=== PATIENT | male | born 1930 | race Caucasian/White ===

== ENCOUNTER 2016-06-15 01:10 | Day surgery (SDC) | payer MEDICARE, OTHER ==
[~2016-06-15] VITALS: Ht 185.4 cm; Wt 95.2 kg
[~2016-06-15 01:10] MED LIST: ADV250INH IH; DABI75CA3 PO; LACT1CAP65 PO; LOSA25TA21 PO; MONT10TA20 PO; MULT-1018 PO; PRE10 PO; SOTA80TA PO; TRIA10.8 NS; UBID100C16 PO
[2016-06-15] MEDS ORDERED: Propofol 10,000 mCg/mL 20 mL Inj ONE (01:11)
[2016-06-15 07:38] VITALS: BP 121/80; PULSE 80; RESP 14; O2SAT 96
[2016-06-15 07:41] LABS: BASOPHILS % (AUTO) 0.5 % (0-3); MONOCYTES % (AUTO) 13.5 % (4-12); Mean Corpuscular Hemoglobin 33.3 pg (27.0-35.0); Mean Corpuscular Volume 98.7 fL (81-100); Platelet Count 221 bil/L (150-400)
[2016-06-15] MEDS ORDERED: 0.9% Sodium Chloride 250 ML IV ONE (07:50)
[2016-06-15 07:53] LABS: INR 1.16 ratio
--- NOTE | 2016-06-15 08:15 | NUR ---
Admitted today for an elective Cardioversion by Dr Burch today. Pt understands procedure today, but due to a lower dose of Pradaxa Dr Burch would like to do a LETY with anesthesia prior to Cardioversion. Pt admits in a 100% paced rates in the 80's. Pt reports interrogation of his device in Dr Burch's office shows he has been in Atrial fibrillation for 55 day.
[2016-06-15] MEDS ORDERED: Lactated Ringer's 500 ML IV PRN (08:53)
[2016-06-15] MEDS ORDERED: Lactated Ringer's 1,000 ML IV SCH (08:53)
--- NOTE | 2016-06-15 08:53 | PCM.HPANE ---
Patient Data Date of Service: June 15, 2016 Surgeon Admitting Provider: Attending Provider:Rolly Burch MD Primary Care Physician:Molina Lynn MD Other Provider: Reason for Visit Atrial Fibrillation Ht/WT & BMI Height (Feet): 6 Height (Inches): 1.00 Weight (Kilograms): 95.200 Body Mass Index 27.82 Allergies Coded Allergies: Contrast Media (Verified Allergy, Severe, IODINE-RASH,FLUSHING,BURNING, 06/15/16) latex (Unverified Allergy, Severe, RASH, 06/15/16) Sulfa (Sulfonamide Antibiotics) (Verified Allergy, Unknown, UNKNOWN, ) amiodarone (Unverified Adverse Reaction, Severe, VISUAL DISTURBANCES, ) atorvastatin calcium (Verified Adverse Reaction, Severe, MYALGIA (PT TAKING DRUG), 06/15/16) colesevelam HCl (Verified Adverse Reaction, Severe, GI UPSET, 06/15/16) lovastatin (Verified Adverse Reaction, Severe, MYALGIA, 06/15/16) morphine (Unverified Adverse Reaction, Severe, N&V, 06/15/16) pravastatin sodium (Verified Adverse Reaction, Severe, MYALGIA, 06/15/16) aspirin (Verified Adverse Reaction, Unknown, GI UPSET, CAN TOLERATE 81MG ASPIRIN, 06/15/16) Past Anesthesia History Anesthesia History: Denies:: Anesthesia Reactions, Malignant Hyperthermia Diabetes History Hx Diabetes?: No MRSA MRSA: No Medications Blood Thinner: Pradaxa Hypertension Medication: Yes Home Meds Incl Beta Peter: Yes Date Beta Peter Taken: June 14, 2016 Time Beta Peter Taken: 21:30 Reported Medications Prednisone (PredniSONE)10 Mg Tablet5 Mg PO DAILY Ref 0 06/14/16 Triamcinolone Acetonide (Nasacort)10.8 Ml Spray1 [place] NS DAILY 10/22/14 Sotalol HCl (Sotalol)80 Mg Vrlvzl74 Mg PO QPM 10/22/14 Sotalol HCl (Sotalol)80 Mg Vkbdou91 Mg PO QAM 10/22/14 Lactobacillus Acidophilus (Probiotic)1 Each Capsule1 Each PO DAILY 10/16/14 Multivitamin (Multi Vitamin Daily)1 Each Tablet1 Each PO DAILY 30 Days Ref 0 10/16/14 Montelukast (Singulair)10 Mg Dikqeh24 Mg PO HS 30 Days Ref 0 06/16/14 Dabigatran Etexilate Mesylate (Pradaxa)75 Mg Oecgesq62 Mg PO BID 30 Days BLEEDS/BRUISES W/ LARGER DOSE 06/16/14 Losartan Potassium 25 Mg Tablet0.5 Tab PO DAILY 06/16/14 Ubidecarenone (Coq-10)100 Mg Agwfvlo545 Mg PO DAILY 06/16/14 Fluticasone/Salmeterol (Advair 250-50 Diskus)60 Puff/Inh Disk1 Puff IH BID #1 DISK Ref 0 06/16/14 Discontinued Reported Medications Atorvastatin (Lipitor)20 Mg Sdkgvy20 Mg PO DAILY Ref 0 10/16/14 Discontinued Scripts Hydroxyzine Pamoate (HydrOXYzine Pamoate)25 Mg Pzyuitf37-79 Mg PO Q4H PRN For Restlessness #60 CAPSULE Prov:Denis Myles PA-C 10/23/14 oxyCODONE-Acetaminophen 5-325 mg 1 Tab Tablet1-2 Tab PO Q4-6h PRN For Severe Pain #50 TABLET Prov:Denis Myles PA-C 10/23/14 [Docusate Sodium] (Colace)100 MG CAPSULE No Conflict Jmbyc751 Mg PO BID CONSTIPATION #20 CAPSULE Prov:Denis Myles PA-C 10/23/14 History History of ENT Problems?: No HEENT History: Positive for:: Cataracts (Cataract surger in [id number]) Sinus Problem (SINUS SURGERY ) Denture Type: None Teeth Condition: Within Normal Limits Hx of Heart Problems?: Yes Cardiovascular History: Positive for:: Atrial Fibrillation (A FIB/FLUTTER) Cardiac Surgery (dual chamber ICD - Left total knee - 2014) Congestive Heart Failure (Remote history) Heart Murmur Irregular Heartbeat (chronic) Pacemaker (12) Peripheral Vascular Thrombophlebitis (HX OF DVT) Valvular 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) Denies:: Chest Pain Edema Hypertension (Well controlled with medication) Hx of Respiratory Problem?: Yes Respiratory History: Positive for:: Asthma COPD Chest Surgery (pacer) Dyspnea Pneumonia (Remote History) Denies:: Emphysema Hemoptysis Tuberculosis Use of C-PAP Machine Hx Neurologic Problems?: No Neurological History: Denies:: Alzheimer's Disease CVA Dementia Dizziness Headaches Parkinson's Disease Seizures Hx of GI Problems?: Yes Hx of Problems?: Yes Genitourinary History: Positive for:: Urinary Tract Infection Denies:: HX of Hemodialysis Kidney Stones HX of Peritoneal Dialysis: No Male Hx: Positive for:: Prostate Problems (Prostate cancer, removal in ) Denies:: Scrotal Mass Testicular Surgery Skin History: Positive for:: History Skin Disorders? (hx of bumps on back and arms S/P EXC SKIN CA) Denies:: Pressure Ulcers Hx Musculoskeletal Problems?: Yes Musculoskeletal History: Positive for:: Degenerative Joint Joint Replacement (Left knee Total 10/2014) Denies:: Back Injury (degenrative HX - but pain is not a problem) Musculoskeletal Trauma Hx of Psycho/Social Problems?: No Hx Surgeries?: Yes Hx Any Other Health Problems?: Yes Other History: Positive for:: Cancer (prostate) Hospitalization Denies:: Endocrine Disease Thyroid Disease History Blood Transfusions: Positive for:: Accept Blood Products? Blood Transfusions Denies:: Blood Transfuse Reaction Hx Diabetes: No Hx Alcohol Use: YesAlcoholic Drinks Per Day: wine 1-2 x's weekHx Substance Use : No Smoking Status: Former Smoker Have You Smoked inLast 12 mo: No Stop/Bang Treated for Sleep Apnea?: No Do You Have a CPAP Machine?: No S-Snoring: Do You Snore Loudly: No GOSIA Risk Assessment: Low Risk, <3 Yes GOSIA Category 4 OutPt Procedure: Yes Risk Assessment Category Category 1A: Patient has history of documented sleep apnea, and HAS NOT received any narcotic, sedative or anesthesia administration during this stay. Category 1B: Patient has history of documented sleep apnea, and HAS received any narcotic , sedative or anesthesia administration during this stay Category 2: Patient has SUSPECTED Obstructive Sleep Apnea, and HAS received any narcotic , sedative or anesthesia administration during this stay. Category 3: Patient has SUSPECTED Obstructive Sleep Apnea and HAS NOT received narcotic, sedative or anesthesia administration during this stay. Category 4: Outpatient in Procedural Areas with known sleep apnea or who screen positive for High Risk via the STOP/BANG questionnaire. Exam Exam Vital Signs Vital Signs Date Time Temp Pulse Resp B/P Pulse Ox O2 Delivery O2 Flow Rate FiO2 06/15/16 07:38 80 14 121/80 96 Room Air General Appearance: Alert, Oriented X3, Cooperative HEENT/AIRWAY: MP 2 Lungs: Clear to Auscultation, Clear to Percussion Heart: Regular Rate/Rhythm, Normal S1, Normal S2 Meds/Labs/Diagnostics Labs Test 06/15/16 07:29 White Blood Count 6.0th/mm3 (3.8-10.1) Red Blood Count 4.47mil/mm3 (4.40-5.80) Hemoglobin 14.9g/dL (13.8-17.2) Hematocrit 44.1% (41.0-50.0) Mean Corpuscular Volume 98.7fL (81-100) Mean Corpuscular Hemoglobin 33.3pg (27.0-35.0) Mean Corpuscular Hemoglobin Concent 33.8% (32.0-37.0) Red Cell Distribution Width 13.5% (12.3-15.4) Platelet Count 221bil/L (150-400) Neutrophils (%) (Auto) 49.0% (40-74) Lymphocytes (%) (Auto) 30.8% (14-46) Monocytes (%) (Auto) 13.5% (4-12) Eosinophils (%) (Auto) 5.0% (0-5) Basophils (%) (Auto) 0.5% (0-3) Prothrombin Time 12.5sec (8.1-12.5) Prothromb Time International Ratio 1.16ratio Sodium Level 140mEq/L (134-144) Potassium Level 4.2mEq/L (3.5-5.2) Chloride Level 103mEq/L (97-108) Carbon Dioxide Level 25mmol/L (18-29) Blood Urea Nitrogen 17mg/dL (8-27) Creatinine 0.88mg/dL (0.76-1.27) Estimat Glomerular Filtration Rate 87mL/min (>59) Glucose Level 103mg/dL (60-99) Calcium Level 9.1mg/dL (8.5-10.1) Diagnositcs EF 35%. Ischemic cardiomyopathy. ICD in place Plan Impression Patient chart reviewed, patient interviewed and anesthestic plan with risks, benefits, and alternatives discussed, and informed consent obtained. NPO per Anesth. Guidelines: Yes ASA Physical Status: ASA3 Severe Disease Anesthetic Plan: MAC Bene/Risks/Altern/Consents: Yes HP Complete Prior to Induction: Yes Shlomo Neil MD June 15, 2016 08:53
[2016-06-15] MEDS ORDERED: fentaNYL-PF 50 mCg/mL 2 mL Inj IVPUSH PRN (08:55)
[2016-06-15] MEDS ORDERED: HYDROmorphone 1 mg/mL Inj IVPUSH PRN (08:55)
[2016-06-15] MEDS ORDERED: Dexamethasone 4 mg/mL Inj IVPUSH PRN (08:55)
[2016-06-15] MEDS ORDERED: Phenylephrine 10,000 mCg/mL Inj IVPUSH PRN (08:55)
[2016-06-15] MEDS ORDERED: MetoCLOpramide 5 mg/mL 2 mL Inj IVPUSH PRN (08:55)
[2016-06-15] MEDS ORDERED: EPHEDrine Sulfate 50 mg/mL Inj IVPUSH PRN (08:55)
[2016-06-15] MEDS ORDERED: Ondansetron 2 mg/mL 2 mL Inj IVPUSH PRN (08:55)
--- NOTE | 2016-06-15 09:31 | PCM.ANEP1 ---
Post Anesthesia Phase 1 PACU Phase 1 Assessment Date of Service: June 15, 2016 Vital Signs Phase II BP 94/70, HR 70, RR 16, O2 94% 4L NC Vital Signs Date Time Temp Pulse Resp B/P Pulse Ox O2 Delivery O2 Flow Rate FiO2 06/15/16 07:38 80 14 121/80 96 Room Air Anesthetic Administered: MAC Level of Alertness: Sleepy, easy to arouse FINE's with Equal Strength: Yes Pain: No Nausea or Vomiting: No Cardiovascular Function and Hy: Yes Oxygen Delivery: Nasal Cannula Lungs: Normal Air Movement Dermatome Level: Full Sensation Summary successful cardioversion Complications: No Follow up Care: Yes Patient Instructions Provided: Yes Shlomo Neil MD June 15, 2016 09:31
[2016-06-15 09:37] VITALS: BP 100/68; PULSE 71; RESP 11; O2SAT 97
[2016-06-15 09:39] VITALS: BP 100/68; PULSE 71; RESP 11; O2SAT 96
[2016-06-15 09:45] VITALS: BP 100/68; PULSE 71; RESP 11; O2SAT 96
--- NOTE | 2016-06-15 09:45 | NUR ---
LETY completed with no thrombus noted in his Atrial Chamber. Cardioversion completed using his ICD - at 40 Joules. Propofol 140mg IV used by anesthesia for both procedures. Pt is gradually waking up. Cardioversion successful 100% paced rate is set at 70.
[2016-06-15 10:00] VITALS: BP 100/68; PULSE 71; RESP 11; O2SAT 96
--- NOTE | 2016-06-15 10:00 | PROCED ---
[address] [address] PROCEDURE NOTE PATIENT: KAY CASATNO : 1930 MR#: [id number] ADMIT: 06/15/2016 JOB ID: [id number] DATE OF SERVICE: 06/15/2016 PREOPERATIVE DIAGNOSIS(ES): Atrial fibrillation. POSTOPERATIVE DIAGNOSIS(ES): Sinus rhythm. PROCEDURE PERFORMED: 1. Direct current cardioversion. 2. ICD preprocedural interrogation and reprogramming. SURGEON: Rolly Burch M.D., electrophysiology attending. CHANNEL MANAGER: None. ANESTHESIA: Monitored anesthesia care was provided by the anesthesiology service. INDICATION: The patient is a pleasant 85-year-old man with severe ischemic cardiomyopathy, Bi V ICD in place, who has had symptomatic persistent atrial fibrillation for the last several weeks. He is anticoagulated on 75 mg twice daily dabigatran. Given his suboptimal dosing, he underwent a preprocedural transesophageal echocardiogram by Dr. Pisano confirming lack of intracardiac thrombus. Please see separate dictated report for the details of that procedure. After a discussion of risks and benefits of cardioversion, he opted to proceed. PROCEDURAL DESCRIPTION: Following informed signed consent, the patient was taken to the procedure suite in a fasting state where defibrillator patches were placed in the anterior and posterior positions. His device was interrogated preprocedurally and showed persistent atrial fibrillation and parameters. After adequate sedation with propofol, a 40 joule shock was delivered through his defibrillator converting him to sinus rhythm. His three leads were then checked again showing excellent thresholds, impedances and sensing. He is dependent on his device. The sensed P and R waves were PACs and PVCs. He was programmed to DDDR 70-110 beats per minute with no changes in his tachy therapy, detections or therapies. Capture was turned on for his atrial lead. He tolerated the procedure well and will be discharged home for close followup with family. COMPLICATIONS: None. ESTIMATED BLOOD LOSS: Not applicable. IMPRESSION: Successful direct current cardioversion. PLAN: 1. Recovery and discharge from the [facility]. 2. Continue current medication regimen including sotalol and Pradaxa. 3. Followup with Dr. Wang in clinic in four weeks. ATTENDING STATEMENT: Rolly Burch M.D., electrophysiology attending present for and supervised/performed all aspects of this procedure.
[2016-06-15 10:15] VITALS: BP 113/74; PULSE 71; RESP 11; O2SAT 96
[2016-06-15] MEDS ORDERED: 0.9% Sodium Chloride 1,000 ML IV SCH (10:55)
[2016-06-15] MEDS ORDERED: Methohexital 10 mg/mL 50 mL Inj IV SCH (10:55)
--- NOTE | 2016-06-15 13:34 | DRSVH ---
[facility] [address] [place] [address] Echocardiogram Report Name: KAY CASTANO HStudy Date: 06/15/2016 Height: 73 in Hospital Exam Location: [facility] Weight: 209 lb Gender: Male BSA: 2.2 m2 : 1930 Age: 85 yrs BP: 154/93 mmHg Reason For Study: Atrial fibrillation, PRE-ABLATION Ordering Physician: Performed By: Hans Triana Referring Physician: REBECCA MENJIVAR Interpretation Summary No thrombus is detected in the left atrial appendage. No left atrial mass or thrombus visualized. Procedure: A 2D transesophageal echocardiogram with spectral and color flow Doppler was performed. Sedation was managed by anesthesiologist; see anesthesiology notes for details. Limited views were obtained. The patient has a paced rhythm. There were no complications. Atria: No left atrial mass or thrombus visualized. No thrombus is detected in the left atrial appendage. Reading Physician:01:34 PM
== END 2016-06-15 23:59 | disposition home or self-care (01) ==
LOC: SOUO 01:10
PROVIDERS: ATTEND Internal Medicine Cardiovascular Disease
DX: I48.0 Paroxysmal atrial fibrillation (principal); Z79.01 Long term (current) use of anticoagulants; I25.10 Atherosclerotic heart disease of native coronary artery without angina pectoris; I25.5 Ischemic cardiomyopathy; E78.5 Hyperlipidemia, unspecified; J44.9 Chronic obstructive pulmonary disease, unspecified; Z95.810 Presence of automatic (implantable) cardiac defibrillator; Z86.73 Personal history of transient ischemic attack (TIA), and cerebral infarction without residual deficits; J45.909 Unspecified asthma, uncomplicated; I25.2 Old myocardial infarction; Z87.891 Personal history of nicotine dependence
CPT/HCPCS: 36415; 80048; 85025; 85610; 92960; C8925; J7030